=== PATIENT | female | born 1965 | race Caucasian/White ===

== ENCOUNTER 2016-06-22 20:03 | Emergency (ER) | payer OTHER ==
[~2016-06-22] VITALS: Ht 165.1 cm; Wt 103.8 kg
[~2016-06-22 20:03] MED LIST: ASPEC81 PO; BUPR75TA20 PO; LISI-461 PO
[2016-06-22 20:21] VITALS: TEMP 36.8; Ht 165.1 cm; Wt 103.8 kg
[2016-06-22 21:59] LABS: BASO % 0.6 %; BASO ABS # 0.06 K/uL (0-0.2); COMPLETE YES; HEMATOCRIT 41.8 % (37-47); IG% 0.3 %; LYMPH % 32.5 %; LYMPH ABS # 3.13 K/uL (1.2-3.4); MEAN CELL VOLUME 89.5 fL (80-100); MEAN CORPUSCULAR HGB CONC 34.7 g/dl (32-36); MEAN PLATELET VOLUME 9.5 fL (7.4-10.4); MONO % 5.6 %; PLATELET COUNT 333 K/uL (130-400); RED BLOOD COUNT 4.67 M/uL (4.2-5.4); WHITE BLOOD COUNT 9.62 K/uL (4.8-10.8)
[2016-06-22 22:23] LABS: ALT/SGPT 29 U/L (12-78); BLOOD UREA NITROGEN 24 mg/dl (7-18); BUN/CREATININE RATIO 25.8 (10-20); CALCIUM 9.7 mg/dl (8.5-10.1); CARBON DIOXIDE 29 mmol/L (21-32); CHLORIDE 102 mmol/L (98-107); CREATININE 0.93 mg/dl (0.60-1.20); GLUCOSE 88 mg/dl (70-99); POTASSIUM 3.9 mmol/L (3.5-5.1); SODIUM 139 mmol/L (136-145)
[2016-06-22 22:34] LABS: ALKALINE PHOSPHATASE 61 U/L (45-117); AST/SGOT 18 U/L (15-37)
--- NOTE | 2016-06-22 22:35 | DIAGNOSTIC IMAGING REPORT ---
CT HEAD WITHOUT CONTRAST (CT) CLINICAL HISTORY: Acute onset dizziness COMPARISON STUDY: 09/22/2014 TECHNIQUE: Axial CT of the brain is performed from the vertex to the skull base. IV contrast was not administered for this examination. CT DOSE: 537.48 mGy.cm FINDINGS: No intra or extra-axial mass lesions are visualized. There is no CT evidence of acute cortical infarction. There is no evidence of midline shift. There is no acute hemorrhage. No calvarial fractures are visualized. There are minor white matter hypodensities likely on a small vessel basis. There is no evidence of pathologic ventricular dilatation. There is no evidence of acute sinusitis IMPRESSION: No acute intracranial findings Electronically signed by: Morris Francisco M.D. 06/22/2016 10:33 PM Dictated Date/Time: 06/22/2016 10:32 PM
[2016-06-22 23:01] LABS: URINE APPEARANCE CLEAR (CLEAR); URINE BILIRUBIN NEG (NEG); URINE COLOR YELLOW; URINE NITRITE NEG (NEG); URINE PH 6.5 (4.5-7.5); URINE SPECIFIC GRAVITY 1.011 (1.000-1.030); UROBILINOGEN NEG (NEG)
[2016-06-22 23:04] LABS: MANUAL MICROSCOPIC REQUIRED? NO; REVIEW REQ? NO
[2016-06-23 00:37] VITALS: BP 134/89; PULSE 85; O2SAT 97
--- NOTE | 2016-06-23 00:40 | EMERGENCY ROOM VISIT NOTE ---
History First contact with patient: 21:26 Chief Complaint: NECK PAIN Stated Complaint: LIGHTHEADED, PAIN IN NECK AND JAW History of Present Illness The patient is a 50 year old female who presents to the Emergency Room with complaints of intermittent left-sided facial pain with occasional dizziness for the past 2 days. Patient is currently symptom-free. Patient is concerned she is having a heart attack. Patient denies nausea, vomiting, diaphoresis, chest pain, dyspnea, recent illness, cough, congestion, sore throat, any ear pain, headache, abdominal pain. She is tolerate by mouth fluids and food. Review of Systems See HPI for pertinent positives & negatives. A total of 10 systems reviewed and were otherwise negative. Past Medical/Surgical History Medical Problems: (1) Allergic rhinitis (2) Chronic migraine without aura (3) Gout (4) History of chronic fatigue syndrome (5) History of depression (6) Hypertension Surgical Problems: (1) History of tubal ligation Family History Cancer Diabetes mellitus Gallbladder disease Heart disease Hypertension Social History Smoking Status: Never Smoker Alcohol Use: none Drug Use: none Marital Status: Housing Status: lives with family Occupation Status: disabled Current/Historical Medications Scheduled Aspirin (Aspirin EC Low Dose), 81 MG PO QAM Bupropion HCl (Bupropion HCl Sr), 100 MG PO BID Lisinopril (Lisinopril), 10 MG PO QAM Multivitamin (Multivitamin), 1 TAB PO DAILY Allergies Coded Allergies: Prednisone (Verified Allergy, Mild, rash, 06/22/16) Tramadol (Unverified Allergy, Unknown, VOMITING, 06/22/16) Ibuprofen (Verified Adverse Reaction, Mild, vomiting, 06/22/16) Iodinated Diagnostic Agents (Verified Adverse Reaction, Unknown, VOMITING , 06/22/16) NSAIDs (Verified Adverse Reaction, Unknown, NAUSEA/VOMITING, 06/22/16) Physical Exam Vital Signs Date Time Temp Pulse Resp B/P Pulse Ox O2 Delivery O2 Flow Rate FiO2 06/23/16 00:32 85 20 134/89 97 Room Air 06/22/16 22:55 80 14 138/82 96 Room Air 06/22/16 21:55 73 132/92 72 145/88 89 146/100 06/22/16 21:54 72 06/22/16 21:38 Room Air 06/22/16 21:25 79 20 129/90 100 Room Air 06/22/16 20:21 36.8 83 20 149/102 98 Room Air Physical Exam VITALS: Vitals are noted on the nurse's note and reviewed by myself. Vital signs stable. GENERAL: Pleasant female, in no acute distress, nondiaphoretic, well-developed well-nourished. SKIN: The skin was without rashes, erythema, edema, or bruising. There is no tenting of the skin. Capillary reflex less than 2 seconds. HEAD: Normocephalic atraumatic. Face nontender to palpation. No TMJ pain. Dental exam: No dental abscess appreciated. EARS: External auditory canals clear, tympanic membranes pearly stoner without erythema or effusion bilaterally. EYES: Pupils equal round and reactive to light and accommodation. Conjunctivae without injection, sclerae without icterus. Extraocular movements intact. NOSE: Patent, turbinates without inflammation or discharge. No sinus tenderness. MOUTH: Mucous membranes moist. Pharynx without erythema or exudate. Uvula midline. Airway patent. Tongue does not deviate. NECK: Supple without nuchal rigidity. No lymphadenopathy. No thyromegaly. Cervical spine is nontender. No JVD. HEART: Regular rate and rhythm without murmurs gallops or rubs. LUNGS: Clear to auscultation bilaterally without wheezes, rales or rhonchi. No dullness to percussion. No retractions or accessory muscle use. ABDOMEN: Positive bowel sounds x 4. Normal tympanic percussion. Soft, nontender, without masses or organomegaly. Cortez sign negative. No guarding or rebound tenderness. MUSCULOSKELETAL: No muscle atrophy, erythema, or edema noted. NEURO: Patient was alert and oriented to person place and time. Normal sensation to light and sharp touch. No focal neurological deficits. Medical Decision & Procedures Laboratory Results 06/22/16 21:45 Red Blood Count 4.67, Mean Corpuscular Volume 89.5, Mean Corpuscular Hemoglobin 31.0, Mean Corpuscular Hemoglobin Concent 34.7, Mean Platelet Volume 9.5, Neutrophils (%) (Auto) 59.0, Lymphocytes (%) (Auto) 32.5, Monocytes (%) (Auto) 5.6, Eosinophils (%) (Auto) 2.0, Basophils (%) (Auto) 0.6, Neutrophils # (Auto) 5.67, Lymphocytes # (Auto) 3.13, Monocytes # (Auto) 0.54, Eosinophils # (Auto) 0.19, Basophils # (Auto) 0.06 06/22/16 21:45 Test 06/22/16 20:20 06/22/16 21:45 06/22/16 23:44 Urine Color YELLOW Urine Appearance CLEAR (CLEAR) Urine pH 6.5 (4.5-7.5) Urine Specific [place] 1.011 (1.000-1.030) Urine Protein NEG (NEG) Urine Glucose (UA) NEG (NEG) Urine Ketones NEG (NEG) Urine Occult Blood 3+ (NEG) Urine Nitrite NEG (NEG) Urine Bilirubin NEG (NEG) Urine Urobilinogen NEG (NEG) Urine Leukocyte Esterase TRACE (NEG) Urine WBC (Auto) 1-5 /hpf (0-5) Urine RBC (Auto) >30 /hpf (0-4) Urine Hyaline Casts (Auto) 0 /lpf (0-5) Urine Epithelial Cells (Auto) 10-20 /lpf (0-5) Urine Bacteria (Auto) NEG (NEG) White Blood Count 9.62 K/uL (4.8-10.8) Red Blood Count 4.67 M/uL (4.2-5.4) Hemoglobin 14.5 g/dL (12.0-16.0) Hematocrit 41.8 % (37-47) Mean Corpuscular Volume 89.5 fL (80-100) Mean Corpuscular Hemoglobin 31.0 pg (25-34) Mean Corpuscular Hemoglobin Concent 34.7 g/dl (32-36) Platelet Count 333 K/uL (130-400) Mean Platelet Volume 9.5 fL (7.4-10.4) Neutrophils (%) (Auto) 59.0 % Lymphocytes (%) (Auto) 32.5 % Monocytes (%) (Auto) 5.6 % Eosinophils (%) (Auto) 2.0 % Basophils (%) (Auto) 0.6 % Neutrophils # (Auto) 5.67 K/uL (1.4-6.5) Lymphocytes # (Auto) 3.13 K/uL (1.2-3.4) Monocytes # (Auto) 0.54 K/uL (0.11-0.59) Eosinophils # (Auto) 0.19 K/uL (0-0.5) Basophils # (Auto) 0.06 K/uL (0-0.2) RDW Standard Deviation 44.0 fL (36.4-46.3) RDW Coefficient of Variation 13.5 % (11.5-14.5) Immature Granulocyte % (Auto) 0.3 % Immature Granulocyte # (Auto) 0.03 K/uL (0.00-0.02) Anion Gap 8.0 mmol/L (3-11) Est Creatinine Clear Calc Drug Dose 87.5 ml/min Estimated GFR () 83.6 Estimated GFR (Non- 72.2 BUN/Creatinine Ratio 25.8 (10-20) Calcium Level 9.7 mg/dl (8.5-10.1) Magnesium Level 2.0 mg/dl (1.8-2.4) Total Bilirubin 0.2 mg/dl (0.2-1) Direct Bilirubin < 0.1 mg/dl (0-0.2) Aspartate Amino Transf (AST/SGOT) 18 U/L (15-37) Alanine Aminotransferase (ALT/SGPT) 29 U/L (12-78) Alkaline Phosphatase 61 U/L (45-117) Total Protein 7.8 gm/dl (6.4-8.2) Albumin 3.7 gm/dl (3.4-5.0) Thyroid Stimulating Hormone (TSH) 1.760 uIu/ml (0.300-4.500) Troponin I < 0.015 ng/ml (0-0.045) ED Course Prior records/ancillary studies reviewed. Triage Nursing notes reviewed. Additional history obtained from family. The patient's history was concerning for intermittent left sided facial pain with dizziness. Differential diagnosis: Etiologies such as trigeminal neuralgia, benign paroxysmal positional vertigo, vestibular neuritis, herpes zoster, Mnire's,Labyrinthine concussion, ana syndrome, acoustic neuroma, otitis media, migraine, brainstem ischemia, CVA, Chiari malformation, MS, cardiac ischemia, aortic dissection, pulmonary embolism, pneumonia, pneumothorax, musculoskeletal, infections, pericarditis, myocarditis, esophageal rupture, gastrointestinal, as well as others were entertained. Physical examination: As above. ER treatment provided: By mouth fluids On reassessment the patient felt better. Diagnostic interpretation by me: The electrocardiogram was negative for pathologic change. Normal sinus, normal intervals, no acute ST-T wave changes. Impression normal sinus rhythm interpreted by myself The labs revealed negative troponin 2 that was 2 hours apart, euthyroid Imaging studies: Negative head CT per radiology Exam and history seem consistent with facial pain that could be related to trigeminal neuralgia. Patient symptoms are short-lived in nature. She's been asymptomatic in the ER. Unremarkable cardiac workup. She is concerned about her heart. Normal EKG. 2 negative troponins that were 2 hours apart. She is advised follow-up family care in a few days or here in the ER sooner for chest pain, fevers, numbness, tingling, worsening signs or symptoms or as needed. Patient was neurovascular and neurologically intact. She was well appearing.By the evaluation outlined above emergent etiologies such as cardiac ischemia, aortic dissection, pulmonary embolism, pneumonia, pneumothorax, infections, pericarditis, myocarditis, gastrointestinal, as well as others were deemed relatively unlikely. The pt informed about the findings as listed above. All questions were answered and pleased with the treatment. Return instructions were outlined and the patient was discharged in stable condition. Referral: The patient was referred back to primary care physician for follow-up in 2 to 3 days for a recheck of the current condition. Case reviewed with my attending Medical Decision As above Impression Primary Impression: Dizziness Additional Impression: Left-sided face pain Departure Information Dispostion Home / Self-Care Condition GOOD Forms WORK / SCHOOL INSTRUCTIONS, HOME CARE DOCUMENTATION FORM, IMPORTANT VISIT INFORMATION Patient Instructions My [facility], ED Neuralgia Trigeminal Additional Instructions Ibuprofen(Motrin, Advil) may be used for fever or pain. Use 600mg every six hours as needed. Take with food. Avoid using more than 2400mg in a 24 hour period. Do not use 2400mg per day for more than three consecutive days without physician direction. Prolonged inappropriate use can lead to stomach upset or ulcers. (AND/OR) Acetaminophen(Tylenol) may be used for fever or pain. Use 1000mg every six hours as needed. Avoid using more than 3000mg in a 24 hour period. Rest and drink plenty of fluids as tolerated. Continue current medications. Avoid strenuous activities and anything that worsens your pain. Resume normal activities once your symptoms resolve. Return to the ER immediately for numbness, tingling, weakness, abdominal pain, vomiting, fevers, chest pains, difficulty breathing, worsening of your condition , or as needed. Follow up with your primary physician in 2-3 days for a recheck of your current condition. Problem Qualifiers
== END 2016-06-23 00:38 | disposition home or self-care (01) ==
LOC: C.EDB 20:04 → C.EDA 06-23 00:38
DX: R42 Dizziness and giddiness (principal); R51 Headache; J30.9 Allergic rhinitis, unspecified; G43.909 Migraine, unspecified, not intractable, without status migrainosus; M10.9 Gout, unspecified; I10 Essential (primary) hypertension; Z86.59 Personal history of other mental and behavioral disorders; Z83.3 Family history of diabetes mellitus; Z82.49 Family history of ischemic heart disease and other diseases of the circulatory system; Z79.82 Long term (current) use of aspirin

== ENCOUNTER 2016-08-04 11:01 | Emergency (ER) | payer OTHER ==
[~2016-08-04] VITALS: Ht 165.1 cm; Wt 102.3 kg
[~2016-08-04 11:01] MED LIST changes: -BUPR75TA20 PO
[2016-08-04 11:06] VITALS: TEMP 36.7; Ht 165.1 cm; Wt 102.3 kg
--- NOTE | 2016-08-04 12:35 | DIAGNOSTIC IMAGING REPORT ---
LEFT ANKLE 3 VIEWS CLINICAL HISTORY: Left ankle pain. FINDINGS: Left ankle injury and pain. FINDINGS: 3 views of left ankle are obtained. No prior studies are available for comparison at the time of dictation. The skeletal structures are well mineralized. No fracture is seen. The ankle mortise is intact. There are large dorsal and plantar calcaneal enthesophytes. No joint effusion is identified. The overlying soft tissues are within normal limits. Small venous varicosities are suggested. IMPRESSION: 1. No acute bony abnormality is identified in the left ankle. 2. Large heel spurs. Electronically signed by: Myke Melo M.D. 08/04/2016 12:34 PM Dictated Date/Time: 08/04/2016 12:33 PM
--- NOTE | 2016-08-04 12:46 | EMERGENCY ROOM VISIT NOTE ---
ED Visit Note First contact with patient: 11:12 CHIEF COMPLAINT: Ankle pain HISTORY OF PRESENT ILLNESS: This 50-year-old female patient presents to the emergency department ambulatory for evaluation of left ankle pain. The patient states that she has had mild pain on serial today when she felt a pop while walking. She reports the pain is in the lateral aspect of the left ankle as well as the posterior aspect. She rates her discomfort a 6/10. She states she occasionally has some radiation to the leg.. Complains of mild swelling and pain. The patient complains of pain along the outside of the ankle. The patient does not have pain of the foot. The patient rates the pain as sharp and 6/10. There was and audible pop. The patient is able to bear weight on the foot. Constant pain, worse with movement, weight bearing, and the dependent position. No knee pain, the patient is able to move their toes. No numbness or weakness of the foot, no laceration. The patient has not had a previous injury to this ankle. The patient has taken nothing for the pain. The patient denies any other injury. REVIEW OF SYSTEMS: A 6 system review of systems was completed with positives and pertinent negatives listed in the HPI. ALLERGIES: NSAIDs, iodinated contrast media, tramadol, prednisone MEDICATIONS: Lisinopril, aspirin, bupropion PMH: Hypertension SOCIAL HISTORY: The patient is employed PHYSICAL EXAM: Vital Signs: Reviewed Nurse's notes, vital signs stable. GENERAL : This is a 50-year-old female, no acute distress, but appears in pain, well- developed, well-nourished. MENTAL STATUS: Alert, oriented to person place and time, and cooperative. MUSCULOSKELETAL: The left ankle is not swollen but is tender over the lateral malleolus, but the skin is intact and there is no ligamentous instability. There is mild tenderness to palpation over the Achilles. Negative Renteria test. There is no fifth metatarsal tenderness. There is no tenderness over the rest of the foot. There is no calf or tibia/ fibular tenderness. There is no visual deformity. The foot and toes are warm and well-perfused. Dorsalis pedis pulse 2+. Sensation to pain and light touch is intact. Capillary refill less than 2 seconds. EMERGENCY DEPARTMENT COURSE: I examined the patient. X-rays of the left ankle pain were reviewed by myself and read by radiology and reveal . A heel spurs but no acute fracture. A walking boot was applied to the ankle under my direction and the position was satisfactory. Neurovascular status was rechecked and intact. She should follow up with orthopedics for further evaluation and management. She should return to the ER with any worsening symptoms. The patient was discharged home in good condition. LEFT ANKLE 3 VIEWS CLINICAL HISTORY: Left ankle pain. FINDINGS: Left ankle injury and pain. FINDINGS: 3 views of left ankle are obtained. No prior studies are available for comparison at the time of dictation. The skeletal structures are well mineralized. No fracture is seen. The ankle mortise is intact. There are large dorsal and plantar calcaneal enthesophytes. No joint effusion is identified. The overlying soft tissues are within normal limits. Small venous varicosities are suggested. IMPRESSION: 1. No acute bony abnormality is identified in the left ankle. 2. Large heel spurs. Problem List Medical Problems: (1) Allergic rhinitis Status: Chronic (2) Chronic migraine without aura Status: Chronic (3) Gout Status: Chronic (4) History of chronic fatigue syndrome Status: Chronic (5) History of depression Status: Chronic (6) Hypertension Status: Chronic Surgical Problems: (1) History of tubal ligation Status: Chronic Current/Historical Medications Scheduled Aspirin (Aspirin EC Low Dose), 81 MG PO QAM Bupropion HCl (Bupropion HCl Sr), 100 MG PO BID Lisinopril (Lisinopril), 10 MG PO QAM Multivitamin (Multivitamin), 1 TAB PO DAILY Allergies Coded Allergies: Prednisone (Verified Allergy, Mild, rash, 08/04/16) Tramadol (Unverified Allergy, Unknown, VOMITING, 08/04/16) Ibuprofen (Verified Adverse Reaction, Mild, vomiting, 08/04/16) Iodinated Diagnostic Agents (Verified Adverse Reaction, Unknown, VOMITING , 08/04/16) NSAIDs (Verified Adverse Reaction, Unknown, NAUSEA/VOMITING, 08/04/16) Vital Signs Date Time Temp Pulse Resp B/P Pulse Ox O2 Delivery O2 Flow Rate FiO2 08/04/16 12:50 81 17 123/98 97 Room Air 08/04/16 11:06 36.7 88 18 155/99 97 Room Air Departure Information Impression Primary Impression: Foot pain Additional Impression: Ankle sprain Dispostion Home / Self-Care Condition GOOD Referrals Martha Steele CRNP (PCP) Mik Tyler MD Forms HOME CARE DOCUMENTATION FORM, IMPORTANT VISIT INFORMATION, Work Instructions Additional Instructions: Please allow Treasure to sit and elevated the left foot as needed for discomfort for 10 days Patient Instructions Ankle Sprain, My [facility] Additional Instructions Ice and elevation for 2 days, , wear the splint until seen by orthopedics. Do not get the splint wet. Tylenol 1000 mg every 6 hours if needed for pain. No more than 4 g of Tylenol in 24 hours. Contact orthopedics today to schedule a follow-up appointment for further evaluation and management. Return with worsening symptoms. Problem Qualifiers Primary Impression: Foot pain Laterality: left Qualified Codes: M79.672 - Pain in left foot Additional Impression: Ankle sprain Encounter type: initial encounter Laterality: left
[2016-08-04 12:50] VITALS: BP 123/98; PULSE 81; O2SAT 97
[2016-08-04] MEDS ORDERED: WLLSR100 PO (22:13)
[2016-08-04] MEDS ORDERED: MULT-506 PO (22:13)
== END 2016-08-04 13:20 | disposition home or self-care (01) ==
LOC: C.EDB 11:03 → C.EDD 13:20
DX: S93.402A Sprain of unspecified ligament of left ankle, initial encounter (principal); M79.672 Pain in left foot; X50.1XXA Overexertion from prolonged static or awkward postures, initial encounter; Y93.01 Activity, walking, marching and hiking; I10 Essential (primary) hypertension; G43.909 Migraine, unspecified, not intractable, without status migrainosus; F32.9 Major depressive disorder, single episode, unspecified; J30.9 Allergic rhinitis, unspecified; Z79.82 Long term (current) use of aspirin; Z79.899 Other long term (current) drug therapy

== ENCOUNTER → 2016-09-16 | Outpatient (CLI) | payer OTHER ==
[~2016-09-16] MED LIST changes: +MULT-506 PO; +WLLSR100 PO
[2016-09-16 12:35] LABS: CHOLESTEROL/HDL RATIO 4.4
== END | disposition home or self-care (01) ==
LOC: C.LAB1850 09:38
PROVIDERS: ATTEND Nurse Practitioner Adult Health
DX: Z13.220 Encounter for screening for lipoid disorders (principal)

== ENCOUNTER → 2016-10-02 | Outpatient (CLI) | payer OTHER ==
[2016-10-02 11:58] LABS: URINE APPEARANCE CLOUDY (CLEAR); URINE BILIRUBIN NEG (NEG); URINE COLOR YELLOW; URINE EPITHELIAL CELL AUTO >30 /lpf (0-5); URINE NITRITE NEG (NEG); URINE SPECIFIC GRAVITY 1.027 (1.000-1.030); UROBILINOGEN NEG (NEG); ZZUR CULT IF INDIC CLEAN CATCH YES
[2016-10-02 11:59] LABS: MANUAL MICROSCOPIC REQUIRED? NO; REVIEW REQ? YES
== END | disposition home or self-care (01) ==
LOC: C.LABSPEC 10:44
PROVIDERS: ATTEND Physician Assistant
DX: N39.0 Urinary tract infection, site not specified (principal)

== ENCOUNTER → 2016-11-02 | Outpatient (CLI) | payer OTHER ==
[2016-11-02 13:12] LABS: BASO % 0.6 %; BASO ABS # 0.05 K/uL (0-0.2); COMPLETE YES; EOS % 1.7 %; HEMATOCRIT 39.1 % (37-47); IG% 0.3 %; LYMPH % 23.6 %; MEAN CELL VOLUME 90.9 fL (80-100); MEAN CORPUSCULAR HEMOGLOBIN 30.9 pg (25-34); MEAN PLATELET VOLUME 9.6 fL (7.4-10.4); MONO % 5.9 %; NEUT % 67.9 %; PLATELET COUNT 388 K/uL (130-400); WHITE BLOOD COUNT 8.88 K/uL (4.8-10.8)
[2016-11-02 13:56] LABS: ALT/SGPT 23 U/L (12-78); AST/SGOT 12 U/L (15-37); BLOOD UREA NITROGEN 17 mg/dl (7-18); BUN/CREATININE RATIO 22.8 (10-20); CALCIUM 9.2 mg/dl (8.5-10.1); CARBON DIOXIDE 27 mmol/L (21-32); CHLORIDE 105 mmol/L (98-107); CREATININE 0.74 mg/dl (0.60-1.20); GLUCOSE 90 mg/dl (70-99); POTASSIUM 4.1 mmol/L (3.5-5.1); SODIUM 138 mmol/L (136-145)
[2016-11-02 14:06] LABS: ALB/GLOB RATIO 0.9 (0.9-2); ALKALINE PHOSPHATASE 54 U/L (45-117); THYROID STIMULATING HORMONE 0.671 uIu/ml (0.300-4.500)
== END | disposition home or self-care (01) ==
LOC: C.LAB1850 12:15
PROVIDERS: ATTEND Nurse Practitioner Adult Health
DX: R53.83 Other fatigue (principal); T14.8 Other injury of unspecified body region; X58.XXXA Exposure to other specified factors, initial encounter

== ENCOUNTER → 2016-12-09 | Outpatient (CLI) | payer OTHER ==
--- NOTE | 2016-12-09 13:30 | DIAGNOSTIC IMAGING REPORT ---
SOFT TIS HEAD/NECK-THYROID HISTORY: Thyroid nodule E04.1 Solitary thyroid [id number] COMPARISON: 04/23/2014 FINDINGS: Right lobe: Maximum dimension 4.7 cm. Small hypoechoic nodules measuring 0.2 and 0.3 mm. Left lobe: Maximum dimension 4.6 cm. Stable 1 cm hypoechoic nodule mid pole left thyroid. Isthmus: Small 3 mm nodule unaltered from the prior study IMPRESSION: Findings consistent with a multinodular thyroid unchanged from the prior exam. The above report was generated using voice recognition software. It may contain grammatical, syntax or spelling errors. Electronically signed by: Michele Weinstein M.D. 12/09/2016 1:29 PM Dictated Date/Time: 12/09/2016 1:25 PM
== END | disposition home or self-care (01) ==
LOC: C.ULTR 12:38
PROVIDERS: ATTEND Nurse Practitioner Adult Health
DX: E04.2 Nontoxic multinodular goiter (principal)

== ENCOUNTER → 2016-12-16 | Outpatient (CLI) | payer OTHER | END | disposition home or self-care (01) | LOC: C.LAB1850 10:19 | PROVIDERS: ATTEND Nurse Practitioner Adult Health | DX: M25.50 Pain in unspecified joint (principal) ==

== ENCOUNTER → 2017-01-04 | Outpatient (CLI) | payer OTHER ==
--- NOTE | 2017-01-04 09:40 | DIAGNOSTIC IMAGING REPORT ---
SI JOINTS 3 OR MORE VIEWS CLINICAL HISTORY: 51 years-old Female presenting with ACHILLES TENDINITIS M76.60, sacroiliac joint pain for years. TECHNIQUE: Frontal and bilateral oblique views of the sacroiliac joints were obtained. COMPARISON: Single frontal view the pelvis from 04/11/2012. FINDINGS: Sacroiliac joints congruent. No erosive changes or significant osteophytosis. No effusion evident. Subtle sclerosis in the iliac bones subjacent to the sacroiliac joints suggested. Sacrum intact. IMPRESSION: No acute osseous injury or significant degenerative change. 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 Electronically signed by: Camden Lemus M.D. 01/04/2017 9:39 AM Dictated Date/Time: 01/04/2017 9:36 AM
--- NOTE | 2017-01-04 09:54 | DIAGNOSTIC IMAGING REPORT ---
R HAND MIN 3 VIEWS ROUTINE, L HAND MIN 3 VIEWS ROUTINE CLINICAL HISTORY: MULTIPLE JOINT PAIN M25.50 COMPARISON STUDY: None. FINDINGS: No fracture or dislocation within the right or left hand. Soft tissues are unremarkable. No bony erosions identified. Bone mineralization is intact. There is mild cartilage space narrowing within the interphalangeal joints of the thumbs with tiny marginal osteophytes. There is a tiny periarticular calcification at the interphalangeal joint of the left thumb. There is also mild cartilage space narrowing within the DIP joints of the fingers. IMPRESSION: Minor osteoarthritis as described above. No bony erosions identified. Electronically signed by: Serge Sommer M.D. 01/04/2017 9:53 AM Dictated Date/Time: 01/04/2017 9:44 AM
[2017-01-04 10:30] LABS: RHEUMATOID FACTOR < 10.0 U/mL (0-15); TOTAL IRON BINDING CAPACITY 429 mcg/dl (250-450)
== END | disposition home or self-care (01) ==
LOC: C.RAD1850 08:50
PROVIDERS: ATTEND Internal Medicine Rheumatology
DX: M25.50 Pain in unspecified joint (principal); M79.1 Myalgia; M54.5 Low back pain; M76.60 Achilles tendinitis, unspecified leg

== ENCOUNTER → 2017-02-22 | Outpatient (CLI) | payer OTHER ==
[2017-02-22 11:13] LABS: LYME DISEASE AB IGG NEG (NEG); LYME DISEASE AB IGM NEG (NEG)
== END | disposition home or self-care (01) ==
LOC: C.LAB1850 09:08
PROVIDERS: ATTEND Physician Assistant
DX: M79.1 Myalgia (principal)

== ENCOUNTER 2017-05-20 12:34 | Emergency (ER) | payer OTHER ==
[~2017-05-20] VITALS: Ht 165.1 cm; Wt 97.6 kg
[2017-05-20 12:39] VITALS: TEMP 37.4; Ht 165.1 cm; Wt 97.6 kg
[2017-05-20] MEDS ORDERED: MoRPHine SULFATE 4 MG/ML 1 ML CARP\\VIAL IV STA ×2 (12:59→15:09)
[2017-05-20] MEDS ORDERED: SODIUM CHLORIDE 0.9% 1000ML 1,000 ML IV STA (12:59)
--- NOTE | 2017-05-20 13:29 | EMERGENCY ROOM VISIT NOTE ---
History First contact with patient: 12:52 Chief Complaint: URINARY SYMPTOMS Stated Complaint: SEVERE PAIN IN BACK, BLOOD IN URINE, FEVER Nursing Triage Summary: pt reports blood in urine and urinary urgency. pt was seen at pcp office and sent to ed for further eval. History of Present Illness The patient is a 51 year old female who presents to the Emergency Room via private vehicle referred by family doctor with complaints of "severe pain and back, blood in urine, fever". The patient states this past Wednesday she was not feeling well, then developed a fever around 102 103F. She states that she then developed pain in her back, and the fever began to subside on Wednesday. She states that now that pain is getting worse, she has urgency, minimal dysuria. She notes that while the family doctor's office. Performed a urine which showed blood. She was sent here for concern for potential infected stone. She had Tylenol. She rates her pain as a 9/10. She states that this back pain is different than previous and is concerned it could be a kidney infection. She denies chance of and notes that her last menstrual cycle was one week ago. Review of Systems A complete 10-point Review of Systems was discussed with the patient, with pertinent positives and negatives listed in the History of Present Illness. All remaining Review of Systems questions can be considered negative unless otherwise specified. Past Medical/Surgical History Medical Problems: (1) Allergic rhinitis (2) Chronic migraine without aura (3) Gout (4) History of chronic fatigue syndrome (5) History of depression (6) Hypertension Surgical Problems: (1) History of tubal ligation Family History Cancer Diabetes mellitus Gallbladder disease Heart disease Hypertension Social History Smoking Status: Never Smoker Alcohol Use: none Drug Use: none Marital Status: Housing Status: lives with family Occupation Status: disabled Current/Historical Medications Scheduled Acetaminophen (Tylenol), 650 MG PO UD Aspirin (Aspirin Ec), 81 MG PO QAM Bupropion (Wellbutrin Sr), 150 MG PO QAM Bupropion HCl (Bupropion HCl Sr), 100 MG PO HS Lisinopril (Lisinopril), 10 MG PO QAM Sulfa/Trimethoprim (Bactrim Ds 800MG/160MG), 1 TAB PO BID Scheduled PRN Lorazepam (Lorazepam), 1.5 TAB PO BID PRN for Anxiety Oxycodone Ir (Roxicodone Ir), 1-2 TAB PO Q4H PRN for Pain Physical Exam Vital Signs Date Time Temp Pulse Resp B/P (MAP) Pulse Ox O2 Delivery O2 Flow Rate FiO2 05/20/17 15:13 90 18 133/95 97 Room Air 05/20/17 14:04 76 18 130/72 96 Room Air 05/20/17 12:39 37.4 72 20 158/108 97 Room Air Physical Exam VITAL SIGNS - Vital signs and nursing notes were reviewed. Stable. GENERAL - 51-year-old female appearing her stated age who is in no acute distress. Communicates well with provider and answers questions appropriately. SKIN - Without rashes. No petechial rashes. HEAD - NC/AT. EYES - Sclera anicteric. EARS - No deformities of external structures noted on gross examination bilaterally. NOSE - Midline and without cyanosis. No epistaxis or purulent drainage noted. MOUTH/OROPHARYNX - Without perioral cyanosis. LUNGS - Chest wall symmetric without accessory muscle use, intercostals retractions, or central cyanosis. Normal vesicular breath sounds CTA B/L. No wheezes, rales, or rhonchi appreciated. CARDIAC - RRR with S1/S2. No murmur, rubs, or gallops appreciated. ABDOMEN - Abdominal contour normal without pulsations or visible masses. BS normoactive all four quadrants. No tenderness, palpable masses, hepatosplenomegaly, or ascites noted. Medical Decision & Procedures ER Provider Diagnostic Interpretation: ABD/PELVIS WITHOUT FOR STONE HISTORY: 51 years-old Female Back pain, urinary urgency, hematuria, fever acute back pain with hematuria, fever and urinary urgency COMPARISON: CTA of the chest 05/01/2010 TECHNIQUE: Multiple axial CT images of the abdomen and pelvis were obtained without contrast. A dose lowering technique was used consistent with the principals of LUCINA. FINDINGS: Mild subsegmental bibasilar atelectasis. There is no pneumatosis or pneumoperitoneum identified. Imaged inferior cardiac chambers are unremarkable. Evaluation of the solid abdominal organs is limited without use of contrast. There is an ill-defined 1.6 cm slightly low attenuating subcapsular lesion of the posterior right hepatic lobe, image 34 series 2 which appears unchanged from comparison CTA of the chest 05/01/2010 suggesting benign etiology such as a hemangioma. Liver is otherwise unremarkable. The spleen, pancreas, gallbladder and adrenal glands are within normal limits. The kidneys, ureters and urinary bladder are within normal limits. Calcifications of the pelvis suggest phleboliths. 2.6 cm cystic structure of the right adnexum suggests dominant follicle. Follicular changes of the left ovary are also noted. Mild atherosclerosis of the aorta. No dominant adenopathy. There is no bowel obstruction or focal bowel wall thickening. Tubular nondilated structure of the right lower quadrant on image 304 series 3 suggests normal appendix. No evidence of acute appendicitis. Soft tissues are unremarkable. Mild degenerative changes of the SI joints. Bones appear intact. IMPRESSION: 1. No acute intra-abdominal or intrapelvic abnormality identified, specifically no renal calculi or obstructive uropathy. 2. 2.6 cm cystic lesion of the right adnexum suggests dominant follicle. 3. No evidence of acute appendicitis. The above report was generated using voice recognition software. It may contain grammatical, syntax or spelling errors. Electronically signed by: Arsenio Sanabria M.D. 05/20/2017 1:44 PM Dictated Date/Time: 05/20/2017 1:33 PM Laboratory Results 05/20/17 13:12 Red Blood Count 4.45, Mean Corpuscular Volume 88.1, Mean Corpuscular Hemoglobin 29.9, Mean Corpuscular Hemoglobin Concent 33.9, Mean Platelet Volume 9.6, Neutrophils (%) (Auto) 64.5, Lymphocytes (%) (Auto) 16.0, Monocytes (%) (Auto) 15.6, Eosinophils (%) (Auto) 2.4, Basophils (%) (Auto) 0.9, Neutrophils # (Auto ) 3.42, Lymphocytes # (Auto) 0.85, Monocytes # (Auto) 0.83, Eosinophils # (Auto ) 0.13, Basophils # (Auto) 0.05 05/20/17 13:12 Test 05/20/17 13:06 05/20/17 13:12 Influenza Type A Antigen Neg for Influ A (NEG) Influenza Type B Antigen Neg for Influ B (NEG) White Blood Count 5.31 K/uL (4.8-10.8) Red Blood Count 4.45 M/uL (4.2-5.4) Hemoglobin 13.3 g/dL (12.0-16.0) Hematocrit 39.2 % (37-47) Mean Corpuscular Volume 88.1 fL (80-100) Mean Corpuscular Hemoglobin 29.9 pg (25-34) Mean Corpuscular Hemoglobin Concent 33.9 g/dl (32-36) Platelet Count 294 K/uL (130-400) Mean Platelet Volume 9.6 fL (7.4-10.4) Neutrophils (%) (Auto) 64.5 % Lymphocytes (%) (Auto) 16.0 % Monocytes (%) (Auto) 15.6 % Eosinophils (%) (Auto) 2.4 % Basophils (%) (Auto) 0.9 % Neutrophils # (Auto) 3.42 K/uL (1.4-6.5) Lymphocytes # (Auto) 0.85 K/uL (1.2-3.4) Monocytes # (Auto) 0.83 K/uL (0.11-0.59) Eosinophils # (Auto) 0.13 K/uL (0-0.5) Basophils # (Auto) 0.05 K/uL (0-0.2) RDW Standard Deviation 41.7 fL (36.4-46.3) RDW Coefficient of Variation 12.9 % (11.5-14.5) Immature Granulocyte % (Auto) 0.6 % Immature Granulocyte # (Auto) 0.03 K/uL (0.00-0.02) Urine Color YELLOW Urine Appearance CLEAR (CLEAR) Urine pH 5.0 (4.5-7.5) Urine Specific Amalia 1.013 (1.000-1.030) Urine Protein NEG (NEG) Urine Glucose (UA) NEG (NEG) Urine Ketones NEG (NEG) Urine Occult Blood 2+ (NEG) Urine Nitrite NEG (NEG) Urine Bilirubin NEG (NEG) Urine Urobilinogen NEG (NEG) Urine Leukocyte Esterase TRACE (NEG) Urine WBC (Auto) 1-5 /hpf (0-5) Urine RBC (Auto) 5-10 /hpf (0-4) Urine Hyaline Casts (Auto) 1-5 /lpf (0-5) Urine Epithelial Cells (Auto) >30 /lpf (0-5) Urine Bacteria (Auto) NEG (NEG) Urine Pathogenic Casts /lpf (0) Urine Mucus PRESENT (NONE PRSENT) Urine Test NEG (NEG) Anion Gap 8.0 mmol/L (3-11) Est Creatinine Clear Calc Drug Dose 98.5 ml/min Estimated GFR () 101.2 Estimated GFR (Non- 87.3 BUN/Creatinine Ratio 12.2 (10-20) Calcium Level 8.7 mg/dl (8.5-10.1) Magnesium Level 2.0 mg/dl (1.8-2.4) Total Bilirubin 0.2 mg/dl (0.2-1) Aspartate Amino Transf (AST/SGOT) 15 U/L (15-37) Alanine Aminotransferase (ALT/SGPT) 23 U/L (12-78) Alkaline Phosphatase 61 U/L (45-117) Total Creatine Kinase 41 U/L (26-192) Creatine Kinase MB < 0.5 ng/ml (0.5-3.6) Creatine Kinase MB Ratio (0-3.0) Total Protein 7.3 gm/dl (6.4-8.2) Albumin 3.3 gm/dl (3.4-5.0) Globulin 4.0 gm/dl (2.5-4.0) Albumin/Globulin Ratio 0.8 (0.9-2) Medications Administered Medications (Trade) Dose Ordered Sig/Rosey Route Start Time Stop Time Status Last Admin Dose Admin Sodium Chloride 1,000 ml @ 999 mls/hr Q1H1M STAT IV 05/20/17 12:59 05/20/17 13:59 DC 05/20/17 13:21 999 MLS/HR Morphine Sulfate (MoRPHine SULFATE INJ) 4 mg NOW STAT IV 05/20/17 12:59 05/20/17 13:01 DC 05/20/17 13:21 4 MG Morphine Sulfate (MoRPHine SULFATE INJ) 4 mg NOW STAT IV 05/20/17 15:09 05/20/17 15:10 DC 05/20/17 15:13 4 MG Medical Decision Patient was seen and evaluated as above. After obtaining a thorough history and physical examination the above work up was performed. She presents to us today with urinary urgency, subjective fevers yesterday, as well as having hematuria microscopically at the family doctor's office. She states she does have a history of underlying back pain, but this feels different. CBC reveals no concerning leukocytosis or anemia. Metabolic panel reveals no concerning abnormality. The urine does reveal contaminated specimen however given her urgency, and back pain we'll treat for underlying potential, located UTI. She is afebrile here with stable vital signs. CT was obtained without contrast for stone. No stone noted. Incidental discussed. She'll be started up on Bactrim 14 days. Case was discussed with the attending physician. Patient is to have her potassium rechecked given her underlying CORKY inhibitor and the new Bactrim. Her current potassium is excellent. She was given morphine here for pain. She was given fluids. She'll be given oxycodone at home for pain management. The patient was educated upon management, had questions answered prior to discharge, and was discharged home in good condition. No red flags in the PDMP. Case was discussed with the attending physician I attest that I have personally reviewed the patient medication list. The patient's blood pressure was reviewed and was found to be elevated, secondary to pain. In the evaluation and treatment of this patient the following differential diagnoses were entertained: Pyelonephritis, UTI, herniated nucleus pulposus, influenza, sepsis, among others. Impression Primary Impression: Urinary tract infection Additional Impression: Back pain Departure Information Dispostion Home / Self-Care Condition GOOD Prescriptions Oxycodone Ir (Roxicodone Ir) 5 Mg Tab 1-2 TAB PO Q4H Y for Pain, #15 TAB For Initial Treatment Prov: Olman Mcfarland PA-C 05/20/17 Sulfa/Trimethoprim (Bactrim Ds 800MG/160MG) Tab 1 TAB PO BID for 14 Days, #28 TAB Prov: Olman Mcfarland PA-C 05/20/17 Referrals No Doctor, Assigned (PCP) Patient Instructions My [facility] Additional Instructions You have been treated in the Emergency Department for a Urinary Tract Infection (UTI). Oxy IR for pain. NO driving with this. You have been prescribed Bactrim to be taken every 12 hours for 14 days. This is an antibiotic. All antibiotics have the potential to cause diarrhea. Stop this medication and contact a medical provider if you were to develop any significant adverse side effects including: wheezing, shortness of breath, passing out, vomiting, or a diffuse rash. Always take antibiotics as directed and COMPLETE the ENTIRE course regardless of the improvement of your symptoms. You may need to have your potassium checked while taking this antibiotic. Please contact family doctor to arrange this. For pain control, you can use the following [id number] medicines (if >12 yo): - Regular strength (325mg/tab) Tylenol (acetaminophen) 2 tabs every 4-6 hours as needed. Do not exceed 12 tablets in a 24 hour period. Avoid taking more than 3 grams (3000 mg) of Tylenol per day. This includes any other sources of acetaminophen you may take on a regular basis. Return to the emergency department if your symptoms worsen despite treatment course outlined above. Drink plenty of water and stay well hydrated. As with any trip to the Emergency Department, you should follow-up with your Primary Care Provider from today's visit. Return to the emergency department if your symptoms persist despite treatment plan outlined above or if the following symptoms occur: increased fevers, chills , low back pain, nausea/vomiting, or blood in your urine. Problem Qualifiers
[2017-05-20 13:32] LABS: BASO % 0.9 %; BASO ABS # 0.05 K/uL (0-0.2); EOS % 2.4 %; EOS ABS # 0.13 K/uL (0-0.5); HEMATOCRIT 39.2 % (37-47); HEMOGLOBIN 13.3 g/dL (12.0-16.0); IG# 0.03 K/uL (0.00-0.02); LYMPH ABS # 0.85 K/uL (1.2-3.4); MEAN CELL VOLUME 88.1 fL (80-100); MEAN CORPUSCULAR HEMOGLOBIN 29.9 pg (25-34); MEAN CORPUSCULAR HGB CONC 33.9 g/dl (32-36); MEAN PLATELET VOLUME 9.6 fL (7.4-10.4); MONO % 15.6 %; MONO ABS # 0.83 K/uL (0.11-0.59); NEUT % 64.5 %; NEUT ABS # 3.42 K/uL (1.4-6.5); PLATELET COUNT 294 K/uL (130-400); RED CELL DISTRIBUTION WIDTH CV 12.9 % (11.5-14.5); RED CELL DISTRIBUTION WIDTH SD 41.7 fL (36.4-46.3); WHITE BLOOD COUNT 5.31 K/uL (4.8-10.8)
--- NOTE | 2017-05-20 13:46 | DIAGNOSTIC IMAGING REPORT ---
ABD/PELVIS WITHOUT FOR STONE HISTORY: 51 years-old Female Back pain, urinary urgency, hematuria, fever acute back pain with hematuria, fever and urinary urgency COMPARISON: CTA of the chest 05/01/2010 TECHNIQUE: Multiple axial CT images of the abdomen and pelvis were obtained without contrast. A dose lowering technique was used consistent with the principals of LUCINA. FINDINGS: Mild subsegmental bibasilar atelectasis. There is no pneumatosis or pneumoperitoneum identified. Imaged inferior cardiac chambers are unremarkable. Evaluation of the solid abdominal organs is limited without use of contrast. There is an ill-defined 1.6 cm slightly low attenuating subcapsular lesion of the posterior right hepatic lobe, image 34 series 2 which appears unchanged from comparison CTA of the chest 05/01/2010 suggesting benign etiology such as a hemangioma. Liver is otherwise unremarkable. The spleen, pancreas, gallbladder and adrenal glands are within normal limits. The kidneys, ureters and urinary bladder are within normal limits. Calcifications of the pelvis suggest phleboliths. 2.6 cm cystic structure of the right adnexum suggests dominant follicle. Follicular changes of the left ovary are also noted. Mild atherosclerosis of the aorta. No dominant adenopathy. There is no bowel obstruction or focal bowel wall thickening. Tubular nondilated structure of the right lower quadrant on image 304 series 3 suggests normal appendix. No evidence of acute appendicitis. Soft tissues are unremarkable. Mild degenerative changes of the SI joints. Bones appear intact. IMPRESSION: 1. No acute intra-abdominal or intrapelvic abnormality identified, specifically no renal calculi or obstructive uropathy. 2. 2.6 cm cystic lesion of the right adnexum suggests dominant follicle. 3. No evidence of acute appendicitis. The above report was generated using voice recognition software. It may contain grammatical, syntax or spelling errors. Electronically signed by: Arsenio Sanabria M.D. 05/20/2017 1:44 PM Dictated Date/Time: 05/20/2017 1:33 PM
[2017-05-20] MEDS ORDERED: BUPR-79 PO (13:48)
[2017-05-20 13:49] LABS: ALBUMIN 3.3 gm/dl (3.4-5.0); ALT/SGPT 23 U/L (12-78); AST/SGOT 15 U/L (15-37); BLOOD UREA NITROGEN 10 mg/dl (7-18); CALCIUM 8.7 mg/dl (8.5-10.1); CARBON DIOXIDE 25 mmol/L (21-32); CREATININE 0.79 mg/dl (0.60-1.20); GLUCOSE 87 mg/dl (70-99); POTASSIUM 4.1 mmol/L (3.5-5.1); SODIUM 136 mmol/L (136-145)
[2017-05-20] MEDS ORDERED: ATV1 PO (13:50)
[2017-05-20] MEDS ORDERED: ACET-1311 PO (13:51)
[2017-05-20 13:54] LABS: ALKALINE PHOSPHATASE 61 U/L (45-117); CKMB < 0.5 ng/ml (0.5-3.6); TOTAL PROTEIN 7.3 gm/dl (6.4-8.2)
[2017-05-20] MEDS ORDERED: ASPI81TA28 PO (13:56)
[2017-05-20] MEDS ORDERED: LISI-461 PO (13:56)
[2017-05-20 14:19] LABS: INFLUENZA B ANTIGEN Neg for Influ B (NEG)
[2017-05-20] MEDS ORDERED: SULF800T23 PO (15:12)
[2017-05-20] MEDS ORDERED: OXYC1TAB3 PO (15:12)
[2017-05-20 15:13] VITALS: BP 133/95; PULSE 90; O2SAT 97
== END 2017-05-20 15:39 | disposition home or self-care (01) ==
LOC: C.EDB 12:36 → C.EDA 15:39
DX: N39.0 Urinary tract infection, site not specified (principal); M54.9 Dorsalgia, unspecified; M10.9 Gout, unspecified; G43.909 Migraine, unspecified, not intractable, without status migrainosus; F32.9 Major depressive disorder, single episode, unspecified; I10 Essential (primary) hypertension; Z98.51 Tubal ligation status; Z79.82 Long term (current) use of aspirin; Z88.8 Allergy status to other drugs, medicaments and biological substances; Z88.5 Allergy status to narcotic agent; Z83.3 Family history of diabetes mellitus; Z82.49 Family history of ischemic heart disease and other diseases of the circulatory system